=== PATIENT | male | born 1985 | race Caucasian/White ===

== ENCOUNTER 2019-06-23 01:55 | Emergency (ER) | payer MEDICAID ==
[2019-06-23] MEDS: DEXAMETHASONE 10 MG/ML 1 ML INJ PO (04:05)
[2019-06-23] MEDS: DIPHENHYDRAMINE 25 MG CAP PO (04:05)
== END 2019-06-23 04:11 | disposition home or self-care (01) ==
LOC: FTE 04:11
DX: B86 Scabies (principal); Z87.891 Personal history of nicotine dependence
CPT/HCPCS: 99283; J1100